=== PATIENT | male | born 1990 | race Caucasian/White ===

== ENCOUNTER 2017-05-26 09:56 | Outpatient (RCR) | payer BC, OTHER ==
[2017-02-26] VITALS (11 sets, daily range): BP systolic 107–124; BP diastolic 62–78
[2017-02-26] MEDS: IMMUNE GLOBULIN,GAMMA (IGG) 300 ML IV SCH (11:11)
[2017-03-22] VITALS (13 sets, daily range): BP systolic 110–119; BP diastolic 60–77
[2017-03-22] MEDS: IMMUNE GLOBULIN,GAMMA (IGG) 300 ML IV SCH (10:07)
[2017-04-12] VITALS (11 sets, daily range): BP systolic 109–120; BP diastolic 62–77
[2017-04-12] MEDS: IMMUNE GLOBULIN,GAMMA (IGG) 300 ML IV SCH (10:22)
[2017-05-03] VITALS (11 sets, daily range): BP systolic 104–115; BP diastolic 56–75
[2017-05-03] MEDS: IMMUNE GLOBULIN,GAMMA (IGG) 300 ML IV SCH (10:22)
[2017-05-26] VITALS (11 sets, daily range): BP systolic 108–120; BP diastolic 53–78
[~2017-05-26] VITALS: Ht 172.7 cm; Wt 56.9 kg
[~2017-05-26 09:56] MED LIST: ACETAMINOPHEN 325 MG TABLET/CAPLET (TYLENOL) ONE; ACETAMINOPHEN 500 MG TAB (TYLENOL) ONE; ACETAMINOPHEN 500 MG TAB (TYLENOL) PO ONE; ACETAMINOPHEN 500 MG TAB (TYLENOL) PO PRN; CEFD300C3 PO; CETI10TA20 PO; D5W 50 ML IVPB SOLUTION 50 ML IV ONE; FLUT9.9S; LEVO500T2 PO; diphenhydrAMINE 50 MG/ML INJ (BENADRYL) IV PRN; diphenhydrAMINE 50 MG/ML INJ (BENADRYL) IVP ONE; diphenhydrAMINE 50 MG/ML INJ (BENADRYL) ONE
[2017-05-26] MEDS: IMMUNE GLOBULIN,GAMMA (IGG) 300 ML IV SCH (10:30)
== END 2017-05-27 | disposition home or self-care (01) ==
LOC: SDC 09:56
PROVIDERS: ATTEND Internal Medicine Critical Care Medicine
DX: D83.1 Common variable immunodeficiency with predominant immunoregulatory T-cell disorders (principal); Z79.899 Other long term (current) drug therapy
CPT/HCPCS: 96365; 96366; 96374; 96375

== ENCOUNTER 2017-09-08 12:58 | Outpatient (RCR) | payer OTHER ==
[2017-06-16] VITALS (10 sets, daily range): BP systolic 100–117; BP diastolic 54–69
[2017-06-16] MEDS: IMMUNE GLOBULIN,GAMMA (IGG) 300 ML IV SCH (10:40)
[2017-07-07 10:25] VITALS: BP 111/70
[2017-07-07] MEDS: IMMUNE GLOBULIN,GAMMA (IGG) 300 ML IV SCH (10:25)
[2017-07-07] MEDS: diphenhydrAMINE 50 MG/ML INJ (BENADRYL) IV PRN (10:25)
[2017-07-07] MEDS: ACETAMINOPHEN 500 MG TAB (TYLENOL) PO PRN (10:26)
[2017-07-07 12:40] VITALS: BP 112/68
[2017-07-07 12:46] VITALS: BP 111/70
[2017-07-28 12:50] VITALS: BP 95/72
[2017-07-28] MEDS: IMMUNE GLOBULIN,GAMMA (IGG) 300 ML IV SCH (13:58)
[2017-07-28 14:15] VITALS: BP 107/68
[2017-07-28 14:30] VITALS: BP 105/78
[2017-07-28 14:45] VITALS: BP 109/63
[2017-07-28 15:00] VITALS: BP 110/60
[2017-07-28 16:00] VITALS: BP 107/69
[2017-07-28] MEDS: ACETAMINOPHEN 500 MG TAB (TYLENOL) PO PRN (19:13)
[2017-07-28] MEDS: diphenhydrAMINE 50 MG/ML INJ (BENADRYL) IV PRN (19:13)
[2017-08-18 14:00] VITALS: BP 117/66
[2017-08-18] MEDS: IMMUNE GLOBULIN,GAMMA (IGG) 300 ML IV SCH (14:39)
[2017-09-08] VITALS (10 sets, daily range): BP systolic 120–136; BP diastolic 45–69
[~2017-09-08] VITALS: Ht 172.7 cm; Wt 56.9 kg
[~2017-09-08 12:58] MED LIST changes: -ACETAMINOPHEN 325 MG TABLET/CAPLET (TYLENOL) ONE; -ACETAMINOPHEN 500 MG TAB (TYLENOL) PO ONE; -ACETAMINOPHEN 500 MG TAB (TYLENOL) PO PRN; -D5W 50 ML IVPB SOLUTION 50 ML IV ONE; -diphenhydrAMINE 50 MG/ML INJ (BENADRYL) IV PRN; -diphenhydrAMINE 50 MG/ML INJ (BENADRYL) IVP ONE; +methylPREDNISolone 125 MG (Solu-MEDROL) VIAL IV PRN
[2017-09-08] MEDS: IMMUNE GLOBULIN,GAMMA (IGG) 300 ML IV SCH (13:25)
[2017-09-08] MEDS: ACETAMINOPHEN 500 MG TAB (TYLENOL) PO PRN (13:26)
[2017-09-08] MEDS: diphenhydrAMINE 50 MG/ML INJ (BENADRYL) IV PRN (13:26)
== END 2017-09-14 | disposition home or self-care (01) ==
LOC: SDC 12:58
PROVIDERS: ATTEND Internal Medicine Critical Care Medicine
DX: D83.1 Common variable immunodeficiency with predominant immunoregulatory T-cell disorders (principal); Z79.899 Other long term (current) drug therapy
CPT/HCPCS: 36415; 82784; 96365; 96366; 96375

== ENCOUNTER 2017-12-23 13:22 | Outpatient (RCR) | payer OTHER ==
[2017-09-29 13:30] VITALS: BP 119/67
[2017-09-29 13:42] VITALS: BP 0/0
[2017-09-29] MEDS: IMMUNE GLOBULIN,GAMMA (IGG) 300 ML IV SCH (13:53)
[2017-09-29 14:09] LABS: ALANINE AMINOTRANSFERASE 30 U/L (0-55); ALBUMIN 4.2 GM/DL (3.2-4.5); ALKALINE PHOSPHATASE 72 U/L (40-136); BILIRUBIN,TOTAL 0.7 MG/DL (0.1-1.0); BUN/CREATININE RATIO 13; CALCIUM 8.9 MG/DL (8.5-10.1); CARBON DIOXIDE 24 MMOL/L (21-32); CHLORIDE 107 MMOL/L (98-107); CREATININE SERUM 0.78 MG/DL (0.60-1.30); GFR ESTIMATED > 60; GLUCOSE 86 MG/DL (70-105); POTASSIUM 3.8 MMOL/L (3.6-5.0); SODIUM 140 MMOL/L (135-145); TOTAL PROTEIN 7.1 GM/DL (6.4-8.2)
[2017-09-29 16:16] VITALS: BP 0/0
[2017-10-21] MEDS: IMMUNE GLOBULIN,GAMMA (IGG) 300 ML IV SCH (13:50)
[2017-10-21 16:10] VITALS: BP 123/68
[2017-10-21 16:26] VITALS: BP 123/68
[2017-11-11] MEDS: IMMUNE GLOBULIN,GAMMA (IGG) 300 ML IV SCH (12:30)
[2017-11-11 15:28] VITALS: BP 120/62
[2017-12-02 13:00] VITALS: BP 93/66
[2017-12-02] MEDS: IMMUNE GLOBULIN,GAMMA (IGG) 300 ML IV SCH (13:45)
[~2017-12-23] VITALS: Ht 172.7 cm; Wt 56.9 kg
[~2017-12-23 13:22] MED LIST changes: -ACETAMINOPHEN 500 MG TAB (TYLENOL) ONE; +ACETAMINOPHEN 500 MG TAB (TYLENOL) PO PRN; +diphenhydrAMINE 25 MG TAB (BENADRYL) PO ONE; +diphenhydrAMINE 50 MG/ML INJ (BENADRYL) IV PRN; -diphenhydrAMINE 50 MG/ML INJ (BENADRYL) ONE
[2017-12-23 13:30] VITALS: BP 124/65
[2017-12-23] MEDS: IMMUNE GLOBULIN,GAMMA (IGG) 300 ML IV SCH (13:45)
[2017-12-23 15:55] VITALS: BP_SYST 108; BP_SYST 124; BP_DIAS 65; BP_DIAS 73
== END 2017-12-28 | disposition home or self-care (01) ==
LOC: SDC 13:22
PROVIDERS: ATTEND Internal Medicine Critical Care Medicine
DX: D83.1 Common variable immunodeficiency with predominant immunoregulatory T-cell disorders (principal); Z79.899 Other long term (current) drug therapy
CPT/HCPCS: 36415; 80053; 82784; 96365; 96366

== ENCOUNTER 2018-04-07 13:26 | Outpatient (RCR) | payer OTHER ==
[2018-01-13] VITALS (11 sets, daily range): BP systolic 105–118; BP diastolic 58–76
[2018-01-13] MEDS: IMMUNE GLOBULIN IV SCH (14:18)
[2018-02-03] VITALS (8 sets, daily range): BP systolic 110–119; BP diastolic 63–74
[2018-02-03] MEDS: IMMUNE GLOBULIN IV SCH (13:25)
[2018-02-24] VITALS (10 sets, daily range): BP systolic 105–123; BP diastolic 58–85
[2018-02-24] MEDS: IMMUNE GLOBULIN IV SCH (13:50)
[2018-02-24 14:11] LABS: ALANINE AMINOTRANSFERASE 32 U/L (0-55); ALBUMIN 4.5 GM/DL (3.2-4.5); ALKALINE PHOSPHATASE 76 U/L (40-136); BILIRUBIN,TOTAL 1.3 MG/DL (0.1-1.0); BUN/CREATININE RATIO 13; CALCIUM 9.3 MG/DL (8.5-10.1); CARBON DIOXIDE 27 MMOL/L (21-32); CHLORIDE 106 MMOL/L (98-107); CREATININE SERUM 0.82 MG/DL (0.60-1.30); GFR ESTIMATED > 60; GLUCOSE 104 MG/DL (70-105); POTASSIUM 3.6 MMOL/L (3.6-5.0); SODIUM 139 MMOL/L (135-145); TOTAL PROTEIN 7.4 GM/DL (6.4-8.2)
[2018-03-17] VITALS (10 sets, daily range): BP systolic 110–126; BP diastolic 60–77
[2018-03-17] MEDS: IMMUNE GLOBULIN IV SCH (14:21)
[~2018-04-07] VITALS: Ht 172.7 cm; Wt 57.2 kg
[2018-04-07] VITALS (10 sets, daily range): BP systolic 107–116; BP diastolic 57–72
[~2018-04-07 13:26] MED LIST changes: -ACETAMINOPHEN 500 MG TAB (TYLENOL) PO PRN; -diphenhydrAMINE 25 MG TAB (BENADRYL) PO ONE; -diphenhydrAMINE 50 MG/ML INJ (BENADRYL) IV PRN; -methylPREDNISolone 125 MG (Solu-MEDROL) VIAL IV PRN
[2018-04-07] MEDS: IMMUNE GLOBULIN IV SCH (13:48)
== END 2018-04-13 | disposition home or self-care (01) ==
LOC: SDC 13:26
PROVIDERS: ATTEND Internal Medicine Critical Care Medicine
DX: D83.1 Common variable immunodeficiency with predominant immunoregulatory T-cell disorders (principal); Z79.899 Other long term (current) drug therapy
CPT/HCPCS: 36415; 80053; 82784; 96365; 96366

== ENCOUNTER 2018-07-06 12:59 | Outpatient (RCR) | payer OTHER ==
[2018-04-28 14:15] VITALS: BP 110/69
[2018-04-28] MEDS: diphenhydrAMINE 25 MG TAB (BENADRYL) PO PRN (14:29)
[2018-04-28] MEDS: ACETAMINOPHEN 500 MG TAB (TYLENOL) PO PRN (14:29)
[2018-04-28] MEDS: IMMUNE GLOBULIN IV SCH (14:29)
[2018-04-28 15:00] VITALS: BP 115/71
[2018-04-28 16:00] VITALS: BP 112/68
[2018-04-28 16:52] VITALS: BP 110/69
[2018-05-20 13:50] VITALS: BP 110/70
[2018-05-20 14:00] VITALS: BP 110/70
[2018-05-20] MEDS: IMMUNE GLOBULIN IV SCH (14:00)
[2018-05-20 16:10] VITALS: BP 110/70
[2018-06-15 13:16] VITALS: BP 113/58
[2018-06-15] MEDS: IMMUNE GLOBULIN IV SCH (13:42)
[2018-06-15 14:01] LABS: ALANINE AMINOTRANSFERASE 21 U/L (0-55); ALBUMIN 4.3 GM/DL (3.2-4.5); ALKALINE PHOSPHATASE 66 U/L (40-136); BILIRUBIN,TOTAL 0.7 MG/DL (0.1-1.0); BUN/CREATININE RATIO 11; CALCIUM 9.4 MG/DL (8.5-10.1); CARBON DIOXIDE 24 MMOL/L (21-32); CHLORIDE 107 MMOL/L (98-107); CREATININE SERUM 0.81 MG/DL (0.60-1.30); GFR ESTIMATED > 60; GLUCOSE 92 MG/DL (70-105); POTASSIUM 3.9 MMOL/L (3.6-5.0); SODIUM 139 MMOL/L (135-145); TOTAL PROTEIN 7.2 GM/DL (6.4-8.2)
[~2018-07-06] VITALS: Ht 172.7 cm; Wt 57.2 kg
[2018-07-06] MEDS ORDERED: IMMUNE GLOBULIN IV SCH (13:15)
[2018-07-06] MEDS: ACETAMINOPHEN 500 MG TAB (TYLENOL) PO PRN (14:05)
[2018-07-06] MEDS: diphenhydrAMINE 25 MG TAB (BENADRYL) PO PRN (14:05)
[2018-07-06 16:20] VITALS: BP 113/73
== END 2018-07-27 | disposition home or self-care (01) ==
LOC: SDC 12:59
PROVIDERS: ATTEND Internal Medicine Critical Care Medicine
DX: D83.1 Common variable immunodeficiency with predominant immunoregulatory T-cell disorders (principal); Z79.899 Other long term (current) drug therapy
CPT/HCPCS: 36415; 80053; 82784; 96365; 96366